=== PATIENT | male | born 1995 | race Hispanic/Latino ===

== ENCOUNTER 2019-10-29 14:39 | Emergency (ER) | payer BC, OTHER | END 2019-10-29 15:00 | disposition home or self-care (01) | LOC: ERS 14:39 | DX: Z20.828 Contact with and (suspected) exposure to other viral communicable diseases (principal); K21.9 Gastro-esophageal reflux disease without esophagitis; Z79.899 Other long term (current) drug therapy | CPT/HCPCS: 87635; 99283; U0003 ==